=== PATIENT | female | born 1985 | race Caucasian/White ===

== ENCOUNTER 2017-08-18 05:41 | Inpatient (IN) ==
[~2017-08-18 05:41] MED LIST: Famotidine 20 MG/2 ML VIAL IVP PRN; Metoclopramide 10 MG/2 ML VIAL IVP PRN; Naloxone 0.4 MG/ML INJ IVP PRN
[2017-08-18 06:30] LABS: Basophils # 0.1 K/mcL (0.0-0.2); Basophils % 0.5 %; Eosinophils # 0.1 K/mcL (0.0-0.6); Eosinophils % 0.9 %; Hematocrit 35.3 % (35.3-44.9); Hemoglobin 11.2 g/dL (11.5-15.4); Immature Granulocytes % 1.4 % (0-4); Lymphocytes # 2.5 K/mcL (0.6-4.6); Lymphocytes % 24.2 %; Mean Corpuscular HGB Conc 31.7 g/dL (31.6-35.5); Mean Corpuscular Hemoglobin 25.9 pg (28.0-33.3); Mean Corpuscular Volume 81.7 fL (83.0-100.0); Mean Platelet Volume 9.7 fL (9.4-12.4); Monocytes # 0.9 K/mcL (0.0-1.3); Monocytes % 8.4 %; Neutrophils # 6.7 K/mcL (1.6-8.9); Platelet Count 272 K/mcL (140-400); Red Blood Count 4.32 M/mcL (3.82-4.97); Red Cell Distribution Width 16.3 % (11.5-14.5); Segmented Neutrophils % 64.6 %
[2017-08-18 06:38] LABS: Amphetamine Screen,Urine Negative ng/mL (Cutoff=1000); Barbiturate Screen,Urine Negative ng/mL (Cutoff=200); Benzodiazepines Screen,Urine Negative ng/mL (Cutoff=200); Cannabinoid Screen,Urine Negative ng/mL (Cutoff = 50); Cocaine Screen,Urine Negative ng/mL (Cutoff= 300); Opiate Screen,Urine Negative ng/mL (Cutoff=300); Phencyclidine Screen,Urine Negative ng/mL (Cutoff=25)
[2017-08-18] MEDS: Ringers Solution, Lactated 1,000 ML IVC SCH ×3 (06:40→16:29)
--- NOTE | 2017-08-18 07:30 | OB/GYN History & Physical ---
Date of Encounter: 08/18/17 Time of Encounter: 07:26 Assessment and Plan (1) 39 weeks gestation of Current visit: Yes Status: Acute Patient 39 week gestation. 0 days. Patient here for scheduled . (2) Impaired fasting glucose Current visit: Yes Status: Acute (3) Hyperlipidemia Current visit: Yes Status: Acute Qualifiers: Hyperlipidemia type: unspecified Qualified Code(s): E78.5 - Hyperlipidemia , unspecified History of Present Illness HPI: Ms. Baker is a 32 year old female presenting to labor and delivery for her scheduled . Patient is 39 weeks 0 days. Denies any complaints at this time. Denies any cramping, vaginal bleeding, vaginal discharge. Denies any urinary symptoms. Denies shortness of breath, chest pain. Patient's first was full term but delivered via due to prolonged labor. Patient states "the baby was stuck in the canal". Patient having C- section today due to previous history. Patient states she has had no complications with this . Although records do show him. Fasting glucose and hyperlipidemia along with GERD. Patient is group B strep negative. HIV and Treponema negative. Rubella immune. Patient is O+. Past Med Surg Social Fam HX - Past Medical History Medical history: non-contributory - Past Surgical History Surgical History: - Social History Smoking Status: Never smoker Smokeless Tobacco Status: No Alcohol use: unknown Drug use: none - Family History Mother History Unknown: Yes Obstetrical History - Pregnancies : 2 Para: 1 Term: 1 : 0 Ab's: 0 Livin Medications and Allergies Ibuprofen [Motrin] 800 mg PO Q8HR #30 tablet 05/26/15 [Rx] Formula Tablet 1 tab PO DAILY 08/18/17 [History] 3 Allergy/AdvReac Type Severity Reaction Status Date / Time Amoxicillin Allergy Rash Verified 05/26/15 12:30 Review of System OB All systems PM: reviewed and no additional remarkable complaints except as stated Exam - Vital Signs Vital signs: Initial Vital Signs Temp Pulse Resp BP 97.5 F L 120 16 113/74 08/18/17 05:57 08/18/17 05:57 08/18/17 05:57 08/18/17 05:57 - Constitutional Constitutional: well developed, well nourished, no acute distress, average body habitus - HEENT HEENT: Normocephaly, Mucus Membranes Moist - Lungs Respiratory exam: CTAB - Cardiovascular Cardiovascular exam: RRR - Abdomen Abdomen: Present: bowel sounds normal, gravid, non tender - Extremities Extremities exam: normal inspection - Uterus Uterus exam: Present: normal size, normal contour Results Result Diagrams: 08/18/17 06:18 Abnormal lab results Hgb 11.2 g/dL (11.5-15.4) L 08/18/17 06:18 MCV 81.7 fL (83.0-100.0) L 08/18/17 06:18 MCH 25.9 pg (28.0-33.3) L 08/18/17 06:18 RDW 16.3 % (11.5-14.5) H 08/18/17 06:18 All other labs normal.
--- NOTE | 2017-08-18 07:35 | Anesthesia Evaluation PreOp ---
Date of Encounter: 08/18/17 Time of Encounter: 07:33 - Past History Planned Operation: jorge Cardiac History: Denies any Significant Hx Pulmonary History: Denies Any Significant HX DRUM SANDER SETTER History: Denies Any Significant HX Other Medical History: Other (cleft lip) Anesthesia History: No Prior Anesthetic Complications, Past Anesthesia (csection , ear tubes, eye surgery) : Yes (, 39 weeks) Alcohol Use: unknown Drug use: none Medications and Allergies Ibuprofen [Motrin] 800 mg PO Q8HR #30 tablet 05/26/15 [Rx] Formula Tablet 1 tab PO DAILY 08/18/17 [History] 3 Allergy/AdvReac Type Severity Reaction Status Date / Time Amoxicillin Allergy Rash Verified 05/26/15 12:30 - Meds/Allergy Pre-op Review Medications Reviewed: Yes Allergies Reviewed: Yes Beta Blockers on Current Med List: No Anesthesia Results - Labs 08/18/17 06:18 Anesthesia Exam O2 Sat Height 1.57 m Weight 79.8 kg Vital Signs Temp Pulse Resp BP 97.5 F L 120 16 113/74 08/18/17 05:57 08/18/17 05:57 08/18/17 05:57 08/18/17 05:57 Height: 62 Weight: 79 NPO (# of Hours): greater than 8 hours - HEENT Pupil (Motor): Pupils equal Mallampati: III Teeth: Edentulous Oral Opening: Greater than 3 - DRUM SANDER SETTER LOC: Oriented DRUM SANDER SETTER Motor: Normal RUE, Normal LUE, Normal RLE, Normal LLE, Normal Face DRUM SANDER SETTER Sensory: Normal: RUE, LUE, RLE, LLE, Face - Cardiac Rhythm: Regular Murmur: None JVD: No Carotid Bruit: No - Pulmonary Breath Sounds: bilateral Clear Respiratory Effort: Symmetrical Anesthesia Assess/Plan ASA Score: 2 Modified Pauline Scale for Level of Consciousness: Cooperative, oriented, and tranquil Anesthetic Plan: Regional Monitoring Plan: Standard Monitors Recovery Plan: PACU
[2017-08-18] MEDS ORDERED: Morphine Sulfate/PF 5mg/10mL Vial ONE (07:52)
[2017-08-18] MEDS ORDERED: Ondansetron 4 MG/2 ML VIAL ONE (07:52)
[2017-08-18] MEDS ORDERED: *HR* FentaNYL (PF) 100 MCG/2 ML VIAL ONE (07:52)
[2017-08-18] MEDS ORDERED: *HR* Oxytocin 10 UNIT/ML VIAL IM ONE ×2 (07:52→09:59)
[2017-08-18] MEDS ORDERED: *HR* Phenylephrine 10 MG/ML VIAL ONE (07:54)
[2017-08-18] MEDS ORDERED: *HR* HYDROmorphone (PF) 1 MG/ML SYRINGE IVP PRN (08:36)
[2017-08-18] MEDS ORDERED: Ringers Solution, Lactated 1,000 ML ONE ×2 (08:51→09:35)
--- NOTE | 2017-08-18 10:35 | Operative Note ---
Date of procedure: 08/18/17 Pre-op diagnosis: bladder laceration Post-op diagnosis: same Procedure: Cystotomy repair Anesthesia: GETA Surgeon: Jose Maria Colon Was there an assistant professor in family studies present: No Estimated blood loss (cc): 0 Specimen: none Condition: stable Disposition: PACU Procedure in Detail: I was asked by Dr. Chino to evaluate a patient who had undergone a today with possible intraoperative bladder laceration. I arrived and placed fluid into the patient's catheter which revealed obvious bladder leak. I scrubbed into the case. Patient had approximately a 5 cm dome bladder laceration. I proceeded to evaluate the remainder of the bladder with no obvious other injuries noted. The mucosa was then closed using a running 3-0 Monocryl followed by a second layer of running 3-0 Vicryl. 120 mL's of saline was then placed in the catheter with no obvious leakage noted. The remainder of the operative dictation will be performed by the primary surgeon.
[2017-08-18] MEDS ORDERED: Ondansetron 4 MG/2 ML VIAL IVP PRN (10:40)
[2017-08-18] MEDS ORDERED: Simethicone 80 MG TAB.CHEW PO PRN (10:40)
[2017-08-18] MEDS ORDERED: Sennosides 8.6 MG TABLET PO PRN (10:40)
[2017-08-18] MEDS ORDERED: Oxytocin 20 units/ LR 1000 mL 20 UNIT/1,000 ML BAG IVC SCH (10:45)
--- NOTE | 2017-08-18 10:59 | OB/GYN Procedure Note ---
Section - Date of procedure: 08/18/17 Preop diagnosis: desires repeat Post-op diagnosis: same Procedure: repeat low transverse Surgeon: [place] Ray Estimated blood loss (cc): 1,000 Was there an assistant controller present: Yes Director [employer]: Daniela Juarez Drug Safety Data Management Specialist: Jhony Thayer Anesthesia Type: Spinal section complications: other Disposition: L&D Recovery Room Specimens: Placenta, Cord blood - (s) A Infant Delivery Date: 08/18/17 Delivery Time: 08:53 Presentation: vertex Position: unknown Gender: Female Gram Weight: 3.09 kg at 1 minute: 5 at 5 minutes: 8 at 10 minutes: 10 Shoulder Dystocia: not encountered - Narrative Narrative: The patient was taken to the operating room where spinal anesthesia was administered without difficulty. The patient was prepped and draped in the usual sterile fashion in the dorsal supine position with a leftward tilt. A Pfannenstiel skin incision was made with the scalpel and carried through to the underlying layer of fascia using the scalpel. The fascia was incised in the midline and extended laterally using Daniel scissors. Kody clamps were used to elevate the superior aspect of the fascial incision, which was elevated, and the underlying rectus muscles were dissected off bluntly and sharply with much difficulty due to severe scar tissue and using Daniel scissors. Attention was then turned to the inferior aspect of the fascial incision, which in similar fashion was grasped with Kody clamps, elevated, and the underlying rectus muscles were dissected off bluntly and sharply. The rectus muscles were dissected in the midline. The peritoneum was identified along with severe adhesions and we were able to bluntly dissect the peritoneum with much difficulty. After we made our incision we extended it superiorly and inferiorly with good visualization of the bladder. However, we noted that the bladder was severely adherent to the uterus. We dissected off as much as we could of the bladder peritoneum from the lower uterine segment before we made our incision. We observed also that the uterus was attached via adhesions to the side wall and I was unable to freely move the uterus. I could not mobilize the uterus to feel for the tubes and ovaries. The bladder blade was inserted. The lower uterine segment was incised in a transverse fashion using the scalpel and extended with manual traction. Copious clear fluid was noted. The infant was subsequently delivered with some difficulty. The nose and mouth were bulb suctioned. The cord was clamped and cut. The was subsequently handed to the awaiting nursery nurse. The placenta was delivered spontaneously intact with a three-vessel cord noted. The uterus again could not be exteriorized because of severe adehesions. We then noticed that there was a cystotomy. The uterus was cleared of all clots and debris. The uterine incision was repaired with 0 vicryl suture in 1 layer. Hemostasis was visualized. Attention was turned to the bladder and after contacting Dr Colon, the cystotomy was repaired without difficulty. Fluid was injected through the cole into the bladder and the excellent bladder integrity was noted(pls see Dr Colon's note for further details). Hemostasis was visualized. The fascia was closed with 0 Vicryl suture, the subcutaneous layer was closed with 3-0 vicryl, and the skin was closed with 4-0 vicryl. Sponge, lap , and instrument counts were correct x2. The patient was stable at the completion of the procedure and was subsequently transferred to the recovery room in stable condition.
--- NOTE | 2017-08-18 11:49 | Anesthesia Evaluation Post Op ---
Date of Encounter: 08/18/17 Time of Encounter: 11:47 - Vital Signs Vital Signs: t 98.7 hr 111 rr 18 bp 113/76 spo2 98 - Lungs Lungs: Clear Ascult./Percussion - Airway Airway: Non-obstructed - Cardiovascular Regular Rate - Mental Status Mental Status: Alert & Oriented, Answers Appropriately - Pain Pain Scale: 2 - Nausea Vomiting Nausea Vomiting: Not Present - Hydration Hydration: NPO, Thayer catheter - Discharge PostOp Status: Transfer Patient to floor
[2017-08-18] MEDS ORDERED: *HR* Morphine 2 MG/ML SYRINGE IVP PRN (14:19)
[2017-08-18] MEDS: Ibuprofen 600 MG TABLET PO PRN (16:29)
[2017-08-19] MEDS: Ibuprofen 600 MG TABLET PO PRN ×3 (04:26→23:57)
[2017-08-19 06:13] LABS: Basophils % 0.3 %; Hematocrit 23.8 % (35.3-44.9); Lymphocytes % 25.8 %; Mean Corpuscular HGB Conc 31.9 g/dL (31.6-35.5); Mean Corpuscular Hemoglobin 26.4 pg (28.0-33.3); Mean Corpuscular Volume 82.6 fL (83.0-100.0); Mean Platelet Volume 9.9 fL (9.4-12.4); Monocytes % 11.6 %; Platelet Count 190 K/mcL (140-400); Red Blood Count 2.88 M/mcL (3.82-4.97); Red Cell Distribution Width 16.5 % (11.5-14.5); Segmented Neutrophils % 60.3 %
[2017-08-19 06:14] LABS: Eosinophils # 0.1 K/mcL (0.0-0.6); Monocytes # 0.9 K/mcL (0.0-1.3); Neutrophils # 4.7 K/mcL (1.6-8.9)
[2017-08-19 06:16] LABS: Hemoglobin 7.6 g/dL (11.5-15.4)
--- NOTE | 2017-08-19 07:19 | OB/GYN Progress Note ---
Date of Encounter: 08/19/17 Time of Encounter: 07:17 - Assessment and Plan (1) Status post repeat low transverse section Current Visit: Yes Status: Acute s/p RC/S, cystotomy repair, POD#1, doing well, patient to be given 2 units of blood then CBC 4 hrs after last unit, patient will be going home with the cole for 2 weeks, cont current inpt care Subjective - Subjective Interval history: saw and examined patient, she is doing well, pain is under control, cole is draining clearer urine, she is tolerating PO intake, has not really ambulated today. Objective - Vital Signs Latest vital signs: Vital Signs Temp Pulse Resp BP Pulse Ox 08/19/17 04:32 97.7 F 76 16 89/48 100 08/18/17 23:41 98.1 F 92 16 93/50 98 08/18/17 19:30 97.9 F 94 14 93/51 99 08/18/17 18:10 98.5 F 99 14 98/63 98 08/18/17 17:10 98.0 F 97 14 99/57 98 08/18/17 16:30 98.4 F 119 14 104/64 08/18/17 16:10 98.3 F 103 14 99/72 99 08/18/17 15:15 98.6 F 105 14 99/65 98 08/18/17 14:15 98.1 F 104 16 99/64 97 08/18/17 13:15 98.1 F 120 16 99/69 98 08/18/17 13:00 98.1 F 110 18 95/63 98 08/18/17 12:45 98.3 F 119 16 102/65 96 08/18/17 12:30 98.1 F 115 16 97 Intake and Output 08/18/17 08/18/17 08/19/17 15:59 23:59 07:59 Intake Total 1000 / 1000 Output Total 350 / 350 1000 / 1000 120 / 120 Balance 650 / 650 -1000 / -1000 -120 / -120 Intake: IV Fluids 1000 / 1000 Lactated Ringers 1,000 ML @ 125 1000 / 1000 mls/hr IVC .Q8H ELBA Rx#: [id number] Output: Catheter 350 / 350 1000 / 1000 120 / 120 Other: Stool Characteristics Normal for Patient Weight 72.62 kg Patient Weight 08/19/17 23:59 Weight 72.62 kg - Exam Lungs: bilateral: normal Chest: Normal S1, Normal S2 Extremities: Present: normal Abdomen: Present: soft Incision: Present: dressed Uterus: Present: firm - Labs Labs: Laboratory Results - last 24 hr 08/19/17 05:54 WBC 7.8 RBC 2.88 L Hgb 7.6 L D Hct 23.8 L MCV 82.6 L MCH 26.4 L MCHC 31.9 RDW 16.5 H Plt Count 190 MPV 9.9 Immature Gran % 1.0 Seg Neutrophils % 60.3 Lymphocytes % 25.8 Monocytes % 11.6 Eosinophils % 1.0 Basophils % 0.3 Neutrophils # 4.7 Lymphocytes # 2.0 Monocytes # 0.9 Eosinophils # 0.1 Basophils # 0.0
[2017-08-19] MEDS: Prenatal Vit/FA 1 EACH TABLET PO SCH (08:52)
[2017-08-19] MEDS ORDERED: 0.9 % Sodium Chloride 1,000 ML IVC SCH (10:00)
[2017-08-19] MEDS ORDERED: 0.9 % Sodium Chloride 1,000 ML ONE (10:01)
[2017-08-19] MEDS: *HR* OxyCODONE/APAP 5/325 TABLET PO PRN ×2 (12:15→22:00)
--- NOTE | 2017-08-19 13:50 | Urology Progress Note ---
Date of Encounter: 08/19/17 Time of Encounter: 13:48 - Assessment and Plan (1) Bladder injury Current Visit: Yes Status: Acute Assessment and plan: Patient will need to keep her catheter in place. I have her follow-up appointment scheduled on August 31Wednesday at 11:15 in my office here at the medical office building. Qualifiers: Encounter type: subsequent encounter Qualified Code(s): S37.20XD - Unspecified injury of bladder, subsequent encounter Progress Note Narrative: Patient seen. Minimal pain at this time. Tolerating catheter well. She is postoperative day 1 from cystotomy repair. Objective Initial Vital Signs Temp Pulse Resp BP 97.5 F L 120 16 113/74 08/18/17 05:57 08/18/17 05:57 08/18/17 05:57 08/18/17 05:57 - General physical appearance Present: well developed - Abdomen Present: soft, non tender - Genitourinary Urine Appearance: Present: Clear - Labs 08/19/17 05:54 - VTE Documentation of Mechanical Device: Intermittent pneumatic compression device Consult Discharge Plan - Plan Referrals: NONE,PCP [Primary Care Provider] -
[2017-08-19 20:07] LABS: Basophils % 0.2 %; Eosinophils # 0.1 K/mcL (0.0-0.6); Eosinophils % 1.3 %; Hematocrit 31.4 % (35.3-44.9); Immature Granulocytes % 1.4 % (0-4); Lymphocytes # 2.5 K/mcL (0.6-4.6); Lymphocytes % 24.9 %; Mean Corpuscular HGB Conc 32.2 g/dL (31.6-35.5); Mean Corpuscular Hemoglobin 27.3 pg (28.0-33.3); Mean Corpuscular Volume 84.9 fL (83.0-100.0); Mean Platelet Volume 9.6 fL (9.4-12.4); Monocytes # 1.1 K/mcL (0.0-1.3); Monocytes % 11.2 %; Neutrophils # 6.1 K/mcL (1.6-8.9); Nucleated Red Blood Cells 0.2 /100 WBC (0); Platelet Count 209 K/mcL (140-400); Red Cell Distribution Width 16.4 % (11.5-14.5)
[2017-08-19 20:09] LABS: Hemoglobin 10.1 g/dL (11.5-15.4)
[2017-08-20] MEDS: *HR* OxyCODONE/APAP 5/325 TABLET PO PRN ×2 (06:44→11:06)
--- NOTE | 2017-08-20 07:18 | Discharge Summary ---
Date of Encounter: 08/20/17 Time of Encounter: 07:17 - Discharge Diagnosis (1) Status post repeat low transverse section Priority: Primary Status: Acute Comments: s/p RC/S, cystotomy repair, POD#2, doing well, ok for discharge - Discharge Medications Home Medications: Ibuprofen [Motrin] 800 mg PO Q8HR #30 tablet 05/26/15 [Rx] Formula Tablet 1 tab PO DAILY 08/18/17 [History] Allergies/Adverse Reactions: 3 Allergy/AdvReac Type Severity Reaction Status Date / Time Amoxicillin Allergy Rash Verified 05/26/15 12:30 Data Procedures and tests throughout hospitalization: Laboratory Tests 08/18/17 08/18/17 08/19/17 06:18 06:18 05:54 WBC 10.4 7.8 RBC 4.32 2.88 L Hgb 11.2 L 7.6 L D Hct 35.3 23.8 L MCV 81.7 L 82.6 L MCH 25.9 L 26.4 L MCHC 31.7 31.9 RDW 16.3 H 16.5 H Plt Count 272 190 MPV 9.7 9.9 Immature Gran % 1.4 1.0 Seg Neutrophils % 64.6 60.3 Lymphocytes % 24.2 25.8 Monocytes % 8.4 11.6 Eosinophils % 0.9 1.0 Basophils % 0.5 0.3 Neutrophils # 6.7 4.7 Lymphocytes # 2.5 2.0 Monocytes # 0.9 0.9 Eosinophils # 0.1 0.1 Basophils # 0.1 0.0 Nucleated RBCs/100 WBC Urine Opiates Screen Negative Ur Barbiturates Screen Negative Ur Phencyclidine Scrn Negative Ur Amphetamines Screen Negative U Benzodiazepines Scrn Negative Urine Cocaine Screen Negative U Marijuana (THC) Screen Negative Blood Type Antibody Screen Crossmatch 08/19/17 08/19/17 08:39 19:39 WBC 10.0 RBC 3.70 L Hgb 10.1 L D Hct 31.4 L MCV 84.9 MCH 27.3 L MCHC 32.2 RDW 16.4 H Plt Count 209 MPV 9.6 Immature Gran % 1.4 Seg Neutrophils % 61.0 Lymphocytes % 24.9 Monocytes % 11.2 Eosinophils % 1.3 Basophils % 0.2 Neutrophils # 6.1 Lymphocytes # 2.5 Monocytes # 1.1 Eosinophils # 0.1 Basophils # 0.0 Nucleated RBCs/100 WBC 0.2 H Urine Opiates Screen Ur Barbiturates Screen Ur Phencyclidine Scrn Ur Amphetamines Screen U Benzodiazepines Scrn Urine Cocaine Screen U Marijuana (THC) Screen Blood Type O POSITIVE Antibody Screen NEGATIVE Crossmatch See Detail Labs on day of discharge: Labs from last 24 hours 08/19/17 08/19/17 19:39 08:39 WBC 10.0 RBC 3.70 L Hgb 10.1 L D Hct 31.4 L MCV 84.9 MCH 27.3 L MCHC 32.2 RDW 16.4 H Plt Count 209 MPV 9.6 Immature Gran % 1.4 Seg Neutrophils % 61.0 Lymphocytes % 24.9 Monocytes % 11.2 Eosinophils % 1.3 Basophils % 0.2 Neutrophils # 6.1 Lymphocytes # 2.5 Monocytes # 1.1 Eosinophils # 0.1 Basophils # 0.0 Nucleated RBCs/100 WBC 0.2 H Blood Type O POSITIVE Antibody Screen NEGATIVE Crossmatch See Detail Date of admission: 08/18/17 05:41 Primary care physician: PCP NONE - Patient Status Disposition: Home, Self-Care Condition: Good Functional capacity at discharge: independent ambulation Overall status at discharge: patient is progressing back to baseline - Discharge Instructions Follow Up With: NONE,PCP [Primary Care Provider] - Hospital Course LEAD BUSINESS SYSTEMS ANALYST Time Attestation: Total time spent providing and/or coordinating discharge services: Exam - Constitutional Vitals: Temp Pulse Resp BP Pulse Ox 97.7 F 101 16 107/74 99 08/19/17 20:13 08/19/17 20:13 08/19/17 20:13 08/19/17 20:13 08/19/17 20:13 General appearance IM: A&O X 3 - Respiratory Respiratory exam: Present: CTAB - Cardiovascular Cardiovascular exam IM: Present: RRR - GI/Abdominal GI/Abdominal exam IM: soft Incision: normal, intact - Rectal Rectal exam: deferred - External exam: normal external exam - VTE Documentation of Mechanical Device: Intermittent pneumatic compression device
[2017-08-20 10:24] VITALS: BP 109/66
[2017-08-20] MEDS: Prenatal Vit/FA 1 EACH TABLET PO SCH ×2 (11:01→11:02)
== END 2017-08-20 15:25 | disposition home or self-care (01) | DRG 540 ==
LOC: 1NENULAB → 1NENUOBS 11:57
PROVIDERS: ADMIT Student in an Organized Health Care Education/Training Program; ATTEND Student in an Organized Health Care Education/Training Program